=== PATIENT | male | born 1990 | race African-American/Black ===

== ENCOUNTER 2025-04-17 13:37 | Emergency (ER) | payer SELFPAY ==
[~2025-04-17] VITALS: Ht 185.4 cm; Wt 119.8 kg
[2025-04-17 13:38] VITALS: BP 148/76; TEMP 97.8; O2SAT 98
[2025-04-18] MEDS ORDERED: CEPH500C PO (11:57)
== END 2025-04-17 16:04 | disposition left against medical advice (07) ==
LOC: M ED 13:37
DX: Z53.21 Procedure and treatment not carried out due to patient leaving prior to being seen by health care provider (principal)

== ENCOUNTER 2025-04-18 10:53 | Emergency (ER) | payer SELFPAY ==
[~2025-04-18] VITALS: Ht 185.4 cm; Wt 121.9 kg
[2025-04-18 10:56] VITALS: BP 134/73; TEMP 97.5; O2SAT 97
[2025-04-18] MEDS: LIDOCAINE 1% MDV 20ML VIAL SC ONE (11:30)
[2025-04-18] MEDS ORDERED: CEPH500C PO (11:57)
== END 2025-04-18 12:07 | disposition home or self-care (01) ==
LOC: M ED 10:53
DX: L03.011 Cellulitis of right finger (principal); F17.210 Nicotine dependence, cigarettes, uncomplicated; Z79.2 Long term (current) use of antibiotics